=== PATIENT | male | born 1995 | race African-American/Black ===

== ENCOUNTER 2019-02-12 18:59 | Emergency (ER) | payer OTHER ==
[~2019-02-12] VITALS: Ht 180.3 cm; Wt 73.0 kg
[2019-02-12] MEDS ORDERED: AMOXICILLIN500 MG ORAL (19:17)
[2019-02-12] MEDS ORDERED: IBUPROFEN600 MG ORAL (19:17)
[2019-02-12 19:20] VITALS: BP 130/85
--- NOTE | 2019-02-12 19:22 | NUR ---
ED Nurse Note: pt camed in for a abscess to left gum/cheek area. per pt this has been going on for 8 months. pt states pain 8/10 radiates to his left face and head. pt previously took ABx of amoxicillin. pt is alert x4. VSS.
--- NOTE | 2019-02-12 19:45 | Emergency Room Report ---
History of Present Illness General Chief Complaint: Toothache Source: Patient Present Illness HPI 23-year-old male presents to the emergency department complaining of pain, tenderness and diagnosis of dental infection about tooth #16. Patient reports his tooth had large dental caries in it and over the last few months has cracked. Patient states that the dentist told him he needs it removed however he was unable to have that facilitated with his insurance. Presents today with worsening of his symptoms and subjective swelling in the right side of the cheek. Patient denies fevers or chills. Denies specific trauma to the tooth. Reports pain radiates up into his head/ear. He denies any relieving factors at this time. Allergies: Coded Allergies: No Known Allergies (Unverified , 02/12/19) Patient History Past Medical History: see triage record Past Surgical History: none Pertinent Family History: none Reviewed Nursing Documentation: PMH: Agreed; PSxH: Agreed Nursing Documentation-PMH Past Medical History: No Stated History Review of Systems All Other Systems: negative except mentioned in HPI Physical Exam Vital Signs Date Time Temp Pulse Resp B/P (MAP) Pulse Ox O2 Delivery O2 Flow Rate FiO2 02/12/19 19:12 98.2 68 12 139/85 (103) 98 Room Air Sp02 EP Interpretation: reviewed, normal General Appearance: no apparent distress, alert, GCS 15, non-toxic Head: normocephalic, atraumatic Eyes: bilateral eye normal inspection, bilateral eye PERRL ENT: hearing grossly normal, normal voice, TMs + canals normal, uvula midline, moist mucus membranes, other - tooth # 16 cracked at the gumline, no fluctuance in the gum, there is some erythema. TTP to the remaining portion of tooth. Neck: full range of motion, no meningismus Respiratory: lungs clear, normal breath sounds, speaking full sentences Cardiovascular #1: regular rate, rhythm Musculoskeletal: back normal, gait/station normal, normal range of motion, non- tender Neurologic: alert, oriented x3, responsive, motor strength/tone normal, sensory intact, speech normal, grossly normal Psychiatric: judgement/insight normal Skin: no rash Lymphatic: no adenopathy Medical Decision Making PA Attestation Dr. Jovel is my supervising Physician whom patient management has been discussed with. Diagnostic Impression: Primary Impression: Pain, dental Additional Impression: Nontraumatic broken or cracked tooth ER Course 23-year-old male presents to the emergency department complaining of pain, tenderness and diagnosis of dental infection about tooth #16. Patient reports his tooth had large dental caries in it and over the last few months has cracked. Patient states that the dentist told him he needs it removed however he was unable to have that facilitated with his insurance. Presents today with worsening of his symptoms and subjective swelling in the right side of the cheek. Patient denies fevers or chills. Denies specific trauma to the tooth. Reports pain radiates up into his head/ear. He denies any relieving factors at this time. Ddx considered but are not limited to cellulitis, dental abscess, orbital cellulitis, d/l tooth, dental pain. trigeminal neuralgia Vital signs: are WNL, pt. is afebrile H&PE are most consistent with pericoronitis of remaining portion of nontraumatic broken tooth. ORDERS: none required at this time, the diagnosis is clinical ED INTERVENTIONS: None required at this time. DISCHARGE: At this time pt. is stable for d/c to home. Will provide printed patient care instructions, and any necessary prescriptions. Care plan and follow up instructions have been discussed with the patient prior to discharge. Last Vital Signs Date Time Temp Pulse Resp B/P (MAP) Pulse Ox O2 Delivery O2 Flow Rate FiO2 02/12/19 19:20 98.2 89 15 130/85 98 Room Air Disposition: HOME, SELF-CARE Condition: Stable Scripts Benzocaine (ANBESOL) 9 Gm Gel..gram. 1 APPLIC MM QID, #9 GM Prov: Kat Valdivia 02/12/19 Naproxen* (NAPROXEN*) 500 Mg Tablet 500 MG ORAL TWICE A DAY for 7 Days, #14 TAB Prov: Kat Valdivia 02/12/19 Amoxicillin/Potassium Clav 875-125* (AUGMENTIN 875-125 TABLET*) 1 Each Tablet 1 TAB ORAL TWICE A DAY for 7 Days, #14 TAB Prov: Kat Valdivia 02/12/19 Patient Instructions: Dental Pain Additional Instructions: Take medications as directed. Follow up with a Dentist in 3-5 days, even if your symptoms have resolved. * * --Please review list of Dental clinics, if you do not already have a Dentist Return sooner to ED if new symptoms occur, or current symptoms become worse. - Please note that this Emergency Department Report was dictated using [employer] master assistant technology software, occasionally this can lead to erroneous entry secondary to interpretation by the dictation equipment. Kat Valdivia Feb 12, 2019 19:45
[2019-02-12] MEDS ORDERED: ANBESOL9 GM MM (19:51)
[2019-02-12] MEDS ORDERED: NAPROXEN500 M2 ORAL (19:51)
[2019-02-12] MEDS ORDERED: AUGMENTIN 875-1 EAC1 ORAL (19:51)
[2019-02-12 20:03] VITALS: BP 132/80
--- NOTE | 2019-02-12 20:03 | NUR ---
ER DISCHARGE NOTE: Patient is cleared to be discharged per ERMD, pt is aox4, on room air, with stable vital signs. pt was given dc and prescription instructions, pt was able to verbalize understanding, pt id band removed without complications. pt is able to ambulate with steady gait. pt took all belongings.
== END 2019-02-12 20:03 | disposition home or self-care (01) ==
LOC: EMR 19:50
DX: K03.81 Cracked tooth (principal); K08.89 Other specified disorders of teeth and supporting structures
CPT/HCPCS: 99282